=== PATIENT | female | born 1940 | race Hispanic/Latino ===

== ENCOUNTER 2021-01-16 22:09 | Observation (INO) | payer OTHER ==
[~2021-01-16] VITALS: Ht 170.2 cm; Wt 36.0 kg
[2021-01-16] MEDS ORDERED: 0.9%NACL 1000ML 1,000 ML IV ONE ×2 (22:30→23:15)
[2021-01-16 22:52] LABS: BASOPHILS % (AUTO) 0.2 % (0.0-5.0); EOSINOPHILS % (AUTO) 0.1 % (0.0-8.0); HEMATOCRIT 30.1 % (36-48); LYMPHOCYTES % (AUTO) 12.6 % (21.0-51.0); MEAN CORPUSCULAR HEMOGLOBIN 21.5 pg (27.0-33.0); MEAN CORPUSCULAR HGB CONC 31.2 g/dL (32.0-36.0); MEAN CORPUSCULAR VOLUME 68.9 fL (79-99); MONOCYTES % (AUTO) 9.2 % (3.0-13.0); NEUTROPHILS % (AUTO) 77.5 % (40.0-77.0); PLATELET COUNT (AUTO) 413 K/uL (130-400); RED BLOOD CELL COUNT(AUTO) 4.37 MIL/uL (4.00-5.50); RED CELL DISTRIBUTION WIDTH 17.6 % (11.0-15.5); WHITE BLOOD COUNT (AUTO) 8.4 K/uL (4.8-10.8)
[2021-01-16 23:04] LABS: CREATININE 1.4 mg/dL (0.5-1.5); POTASSIUM 4.4 mmol/L (3.5-5.1)
[2021-01-16 23:06] LABS: INR 1.1 (0.85-1.15); PROTHROMBIN TIME 11.9 SEC (9.6-11.6)
[2021-01-16 23:09] LABS: ALBUMIN 3.5 g/dL (3.5-5.0); BILIRUBIN,TOTAL 0.6 mg/dL (0.2-1.0); TOTAL PROTEIN, SERUM 8.4 g/dL (6.0-8.3)
[2021-01-16 23:18] LABS: BILIRUBIN,URINE Negative (NEGATIVE); COLOR,URINE Yellow (YELLOW); GLUCOSE, URINE (UA) Negative (NEGATIVE); KETONES,URINE Trace mg/dL (NEGATIVE); LEUKOCYTE ESTERASE ,URINE Large (NEGATIVE); NITRATE,URINE Negative (NEGATIVE); OCCULT BLOOD,URINE Nonhemolyzed Trace (NEGATIVE); PROTEIN,URINE POS 1+ mg/dL (NEGATIVE)
[2021-01-16 23:19] LABS: B-TYPE NATRIURETIC PEPTIDE 103 pg/mL (0-100)
[2021-01-16 23:23] LABS: APPEARANCE,URINE SLIGHTLY CLOUDY (CLEAR)
[2021-01-16 23:29] LABS: BACTERIA,URINE Few /HPF (None Seen); RBC,URINE 0-1 /HPF (0-1); WBC,URINE 51-100 /HPF (0-1)
[2021-01-16 23:46] VITALS: BP 172/56
[2021-01-17] MEDS ORDERED: CEFTRIAXONE 1G VIAL IVP ONE
[2021-01-17] MEDS ORDERED: MORPHINE 2 MG SYG IV PRN (01:00)
[2021-01-17] MEDS ORDERED: ATOR40TA69 PO (01:00)
[2021-01-17] MEDS ORDERED: LEVO50CA4 PO (01:00)
[2021-01-17] MEDS ORDERED: LIDOCAINE HCL-MPF 1% 2ML VIAL IV PRN (01:00)
[2021-01-17] MEDS ORDERED: DIPHENHYDRAMINE HCL 25 MG CAPSULE PO PRN (01:00)
[2021-01-17] MEDS ORDERED: ACETAMINOPHEN WITH CODEINE 1 TAB TAB PO PRN (01:00)
[2021-01-17] MEDS ORDERED: ONDANSETRON 4MG INJ IV PRN (01:00)
[2021-01-17] MEDS ORDERED: MAGNESIUM 2GM PREMIX 50ML 50 ML IV PRN (01:00)
[2021-01-17] MEDS ORDERED: SITA1TAB6 PO (01:00)
[2021-01-17] MEDS ORDERED: EZET10TA48 PO (01:00)
[2021-01-17] MEDS ORDERED: POTASSIUM CHLORIDE 20MEQ/100ML 100 ML IV PRN (01:00)
[2021-01-17] MEDS ORDERED: ATEN100T PO (01:00)
[2021-01-17] MEDS ORDERED: LACTULOSE 20 GM/30 ML UDCUP PO PRN (01:00)
[2021-01-17] MEDS ORDERED: MIRT-22 PO (01:00)
[2021-01-17] MEDS ORDERED: POTASSIUM CHLORIDE 10% ELIXIR 20 MEQ/15 ML UDCUP PO PRN (01:00)
[2021-01-17] MEDS ORDERED: GUAIFENESIN-DM 200/20 MG 10 ML PO PRN (01:00)
[2021-01-17] MEDS ORDERED: NITROGLYCERIN 0.4 MG SL TAB SL PRN (01:00)
[2021-01-17] MEDS ORDERED: ACETAMINOPHEN 325 MG TAB PO PRN ×2 (01:00)
[2021-01-17] MEDS ORDERED: MAG/ALUM/SIMETH 30 ML UDCUP PO PRN (01:00)
[2021-01-17] MEDS ORDERED: CIPR500S5 PO (01:00)
[2021-01-17] MEDS ORDERED: KCL 20 MEQ ERTAB PO PRN (01:00)
[2021-01-17] MEDS: HYDRALAZINE 20MG/ML VIAL IV PRN (01:04)
[2021-01-17] MEDS ORDERED: HYDRALAZINE 20MG/ML VIAL ONE (01:04)
[2021-01-17 02:20] VITALS: BP 151/51
[2021-01-17] MEDS: 0.9%NACL 1000ML 1,000 ML IV SCH ×2 (02:27→13:30)
[2021-01-17 03:10] VITALS: BP 154/53
[2021-01-17] MEDS: INSULIN HUMULIN R 100 UNIT/ML 3ML SQ SCH ×4 (05:30→19:56)
[2021-01-17 07:30] VITALS: BP 114/48
[2021-01-17] MEDS: FAMOTIDINE 20MG TAB PO SCH ×2 (08:37→19:56)
[2021-01-17] MEDS: CEFTRIAXONE 1G VIAL IV SCH (08:37)
[2021-01-17] MEDS: ENOXAPARIN SODIUM 30 MG/0.3 ML SQ SCH (08:39)
[2021-01-17 11:00] VITALS: BP 125/43
[2021-01-17 16:00] VITALS: BP 113/40
[2021-01-17 20:08] VITALS: BP 111/75
[2021-01-18 00:04] VITALS: BP 119/44
[2021-01-18] MEDS: 0.9%NACL 1000ML 1,000 ML IV SCH ×2 (02:00→14:30)
[2021-01-18 03:58] LABS: BASOPHILS % (AUTO) 0.2 % (0.0-5.0); HEMATOCRIT 23.5 % (36-48); LYMPHOCYTES % (AUTO) 19.2 % (21.0-51.0); MEAN CORPUSCULAR HGB CONC 31.9 g/dL (32.0-36.0); MEAN CORPUSCULAR VOLUME 68.9 fL (79-99); MONOCYTES % (AUTO) 13.4 % (3.0-13.0); NEUTROPHILS % (AUTO) 65.9 % (40.0-77.0); PLATELET COUNT (AUTO) 303 K/uL (130-400); RED BLOOD CELL COUNT(AUTO) 3.41 MIL/uL (4.00-5.50); RED CELL DISTRIBUTION WIDTH 17.5 % (11.0-15.5); WHITE BLOOD COUNT (AUTO) 5.7 K/uL (4.8-10.8)
[2021-01-18] MEDS: HYDRALAZINE 20MG/ML VIAL IV PRN (04:10)
[2021-01-18 04:12] LABS: B-TYPE NATRIURETIC PEPTIDE 90 pg/mL (0-100)
[2021-01-18 04:14] VITALS: BP 169/59
[2021-01-18 04:36] LABS: ALBUMIN 2.7 g/dL (3.5-5.0); BILIRUBIN,TOTAL 0.4 mg/dL (0.2-1.0); CREATININE 1.2 mg/dL (0.5-1.5); MAGNESIUM 1.3 mg/dL (1.80-2.40); POTASSIUM 3.8 mmol/L (3.5-5.1); THYROID STIMULATING HORMONE 2.34 uIU/mL (0.36-3.74); TOTAL PROTEIN, SERUM 6.7 g/dL (6.0-8.3)
[2021-01-18 05:17] VITALS: BP 123/44
[2021-01-18] MEDS: INSULIN HUMULIN R 100 UNIT/ML 3ML SQ SCH ×2 (05:31→12:42)
[2021-01-18] MEDS: FAMOTIDINE 20MG TAB PO SCH (08:41)
[2021-01-18] MEDS: CEFTRIAXONE 1G VIAL IV SCH (08:48)
[2021-01-18] MEDS: ENOXAPARIN SODIUM 30 MG/0.3 ML SQ SCH (08:50)
[2021-01-18 09:14] VITALS: BP 139/50
[2021-01-18 11:00] VITALS: BP 124/44
[2021-01-18] MEDS ORDERED: AMOX-426 PO (11:56)
[2021-01-18 16:20] VITALS: BP 130/85
== END 2021-01-18 16:30 | disposition home or self-care (01) ==
LOC: EDH 22:09 → EDHIP 01-17 00:40 → 3CH 01-17 02:49
PROVIDERS: ADMIT Internal Medicine Pulmonary Disease; ATTEND Internal Medicine Pulmonary Disease
DX: A41.9 Sepsis, unspecified organism (principal); Z20.822 Contact with and (suspected) exposure to COVID-19; R41.82 Altered mental status, unspecified; E86.9 Volume depletion, unspecified; E87.1 Hypo-osmolality and hyponatremia; E87.2 Acidosis; I12.9 Hypertensive chronic kidney disease with stage 1 through stage 4 chronic kidney disease, or unspecified chronic kidney disease; N18.30 Chronic kidney disease, stage 3 unspecified; E11.22 Type 2 diabetes mellitus with diabetic chronic kidney disease; E03.9 Hypothyroidism, unspecified; F32.9 Major depressive disorder, single episode, unspecified; H70.93 Unspecified mastoiditis, bilateral; N39.0 Urinary tract infection, site not specified; Z79.899 Other long term (current) drug therapy; Z87.442 Personal history of urinary calculi; Z79.84 Long term (current) use of oral hypoglycemic drugs; Z79.890 Hormone replacement therapy
CPT/HCPCS: 36415 ×3; 70450; 71045; 71250; 80053 ×2; 81001; 82140; 82550; 82948 ×7; 83605 ×2; 83735; 83880 ×2; 84100; 84145; 84295 ×3; 84439; 84443; 84484; 85025 ×2; 85610; 86850; 86900; 86901; 87040 ×2; 87088; 87635; 87804 ×2; 92610; 93005; 96361; 96365; 96366; 96372 ×2; 96375; 96376 ×2; 97039 ×2; 97161; 99291; C9803; G0378 ×38; G8978; G8979; G8980; G8981; G8982; G8983; J0360 ×2; J0696 ×3; J1650 ×2; J1815; J3475; J7030